=== PATIENT | male | born 1975 | race Caucasian/White ===

== ENCOUNTER 2022-06-10 05:38 | Emergency (ER) | payer BC ==
[2022-06-10 05:53] VITALS: BP 119/78; PULSE 110; RESP 18; TEMP 99.3; BMI 35.9
[2022-06-10] MEDS ORDERED: ACETAMINOPHEN 500 MG TABLET (FP) PO ONE (07:31)
[2022-06-10] MEDS ORDERED: ACETAMINOPHEN 325 MG TABLET (FP) ONE (07:35)
[2022-06-10] MEDS ORDERED: SODIUM CHLORIDE 1,000 ML IV STA (07:39)
[2022-06-10 08:40] LABS: BASO % 0.3 % (0-2.0); EOS % 0.8 % (0-4.5); HEMATOCRIT 42.5 % (35.4-49); LYMPH % 17.5 % (8-40); MCH 30.1 pg (25.7-33.7); MCHC 35.3 g/dl (32.0-35.9); MEAN CELL VOLUME 85.3 fl (80-96); MEAN PLT VOLUME 10.3 fl (7.5-11.1); MONO % 10.7 % (3.8-10.2); NEUT % 70.7 % (42.8-82.8); PLATELET COUNT 132 10^3/uL (134-434); RBC 4.98 M/mm3 (4.00-5.60); RDW 12.9 % (11.9-15.9); WHITE BLOOD COUNT 6.9 K/mm3 (4.0-10.0)
[2022-06-10 09:38] LABS: ALBUMIN 4.2 g/dl (3.4-5.0); BLOOD UREA NITROGEN 12.4 mg/dL (7-18); CALCIUM 9.1 mg/dL (8.5-10.1)
[2022-06-10 09:43] LABS: BILIRUBIN,TOTAL 1.5 mg/dL (0.2-1); TOT PROT 7.3 g/dl (6.4-8.2)
[2022-06-10] MEDS ORDERED: IBUPROFEN 600 MG TABLET (FP) PO ONE ×2 (10:34→11:02)
== END 2022-06-10 11:22 | disposition home or self-care (01) ==
LOC: JERFT 05:38 → JER 05:38 → JERFT 11:22
PROC: 3E0337Z Introduction of Electrolytic and Water Balance Substance into Peripheral Vein, Percutaneous Approach (ICD-10-PCS; principal; 2022-06-10)
DX: J09.X2 Influenza due to identified novel influenza A virus with other respiratory manifestations (principal); R05.1 Acute cough
CPT/HCPCS: 0241U-QW; 36415; 71046-TC-FY; 76705-TC; 80053; 82150; 82977; 83690; 85025; 93005; 93010; 99285-25

== ENCOUNTER 2022-06-12 01:08 | Emergency (ER) | payer BC ==
[2022-06-12 01:30] VITALS: BP 130/82; PULSE 90; RESP 18; TEMP 99; BMI 35.9
[2022-06-12] MEDS ORDERED: MAG HYDROX/AL HYDROX/SIMETH 30 ML UNIT-DOSE CUP PO ONE (01:47)
[2022-06-12] MEDS ORDERED: KETOROLAC TROMETHAMINE 15 MG/ML VIAL IM ONE (01:47)
[2022-06-12] MEDS ORDERED: FAMOTIDINE 20 MG TABLET PO ONE (01:47)
[2022-06-12] MEDS ORDERED: LIDOCAINE 5% TOPICAL PATCH TP ONE (01:47)
[2022-06-12] MEDS ORDERED: MAG HYDROX/AL HYDROX/SIMETH 30 ML UNIT-DOSE CUP ONE (02:01)
[2022-06-12] MEDS ORDERED: LIDOCAINE 5% TOPICAL PATCH ONE (02:01)
[2022-06-12] MEDS ORDERED: KETOROLAC TROMETHAMINE 15 MG/ML VIAL ONE (02:01)
[2022-06-12] MEDS ORDERED: FAMOTIDINE 20 MG TABLET ONE (02:01)
[2022-06-12] MEDS ORDERED: MAGNESIUM HYDROX 2400MG/30ML ORAL SUSPENSION 30 ML CUP PO ONE (04:14)
[2022-06-12] MEDS ORDERED: MAGNESIUM HYDROX 2400MG/30ML ORAL SUSPENSION 30 ML CUP ONE (04:25)
[2022-06-12] MEDS ORDERED: LIDOCAINE PATCH REMOVAL MC SCH (22:00)
== END 2022-06-12 04:31 | disposition home or self-care (01) ==
LOC: JER 01:08
PROC: 3E023GC Introduction of Other Therapeutic Substance into Muscle, Percutaneous Approach (ICD-10-PCS; principal; 2022-06-12)
DX: M94.0 Chondrocostal junction syndrome [Tietze] (principal)
CPT/HCPCS: 99284-25

== ENCOUNTER 2024-11-20 07:05 | Emergency (ER) | payer BC, OTHER ==
[2024-11-20 07:16] VITALS: TEMP 98.4; BMI 35.9
[2024-11-20] MEDS ORDERED: ACETAMINOPHEN INJECTION 100 ML ONE (07:49)
[2024-11-20] MEDS: ACETAMINOPHEN 1000 MG/100 ML BAG IVPB ONE (08:04)
[2024-11-20] MEDS ORDERED: MAG HYDROX/AL HYDROX/SIMETH 30 ML UNIT-DOSE CUP ONE (08:05)
[2024-11-20] MEDS ORDERED: FAMOTIDINE 20 MG/50 ML IVPB 20 MG/50 ML MG IVPB ONE (08:05)
[2024-11-20 08:15] LABS: MCHC 33.3 g/dl (32.3-36.5); MEAN CELL VOLUME 86.5 fl (79.0-92.2); MEAN PLT VOLUME 12.2 fl (9.4-12.4); RDW 11.9 % (12.1-15.9)
[2024-11-20 08:26] LABS: URINE APPEARANCE TURBID; URINE BILIRUBIN NEGATIVE (NEGATIVE); URINE COLOR YELLOW; URINE GLUCOSE (UA) NEGATIVE (NEGATIVE); URINE KETONE NEGATIVE (NEGATIVE); URINE LEUK ESTERASE NEGATIVE (NEGATIVE); URINE NITRITE NEGATIVE (NEGATIVE); URINE PROTEIN NEGATIVE (NEGATIVE); URINE UROBILINOGEN 1.0 mg/dL (0.2-1.0)
[2024-11-20] MEDS: MAG HYDROX/AL HYDROX/SIMETH 30 ML UNIT-DOSE CUP PO ONE (08:29)
[2024-11-20] MEDS: FAMOTIDINE 20 MG/50 ML IVPB 20 MG/50 ML MG IVPB ONE (08:29)
[2024-11-20 08:59] LABS: CO2 26 mmol/L (21-32)
[2024-11-20 09:00] LABS: GLUCOSE,RANDOM 110 mg/dL (74-106)
[2024-11-20 09:01] LABS: SGPT/ALT 28 U/L (13-61)
[2024-11-20 09:02] LABS: CREATININE 0.8 mg/dL (0.55-1.3); SGOT/AST 14 U/L (15-37)
[2024-11-20 09:03] LABS: TOT PROT 7.0 g/dl (6.4-8.2)
[2024-11-20 09:05] LABS: ALK PHOS 73 U/L (45-117)
[2024-11-20 12:02] LABS: HCV DIAGNOSTIC IN-HOUSE W/RFLX NON-REACTIVE (NONREACTIVE)
[2024-11-20 13:20] VITALS: BP 109/59; PULSE 65; RESP 16
[2024-11-20 22:20] LABS: HIV INTERPRETATION NEGATIVE (NEGATIVE)
== END 2024-11-20 09:53 | disposition home or self-care (01) ==
LOC: JER 07:05
PROC: 3E033GC Introduction of Other Therapeutic Substance into Peripheral Vein, Percutaneous Approach (ICD-10-PCS; principal; 2024-11-20)
PROC: 3E033GC Introduction of Other Therapeutic Substance into Peripheral Vein, Percutaneous Approach (ICD-10-PCS; 2024-11-20)
DX: K52.9 Noninfective gastroenteritis and colitis, unspecified (principal); R10.12 Left upper quadrant pain
CPT/HCPCS: 36415; 71045-TC-FY; 80053; 81003; 82550; 83690; 84484; 85027; 86803; 87086; 87389; 93005; 93010; 96365; 96375; 99285-25